=== PATIENT | female | born 1995 | race Caucasian/White ===

== ENCOUNTER 2019-07-10 14:02 | Emergency (ER) | payer BC ==
[2019-07-10] MEDS ORDERED: TETRACAINE 0.5% STERI-UNIT SOL OP STA (14:10)
[2019-07-10] MEDS ORDERED: Fluor-I-Strip/Ful-Flo OP ONE ×2 (14:11→14:13)
[2019-07-10 14:12] VITALS: BP 136/86; PULSE 96; O2SAT 100
[2019-07-10] MEDS ORDERED: Eye-Stream Solution OP ONE (14:12)
[2019-07-10] MEDS ORDERED: Eye-Stream Solution ONE (14:13)
[2019-07-10] MEDS ORDERED: TETRACAINE 0.5% STERI-UNIT SOL OP ONE (14:13)
--- NOTE | 2019-07-10 14:23 | ERPHSYRPT ---
- History of Present Illness Time Seen by Provider: 07/10/19 14:10 Source: patient Exam Limitations: no limitations Patient Subjective Stated Complaint: Pt's dog scratched her left eye and she is unable to open her eye without pain Triage Nursing Assessment: Pt brought to the ER by her , unable to open left eye due to pain and tearing, rates pain 6/10, denies any other issues at this time Physician History: Her dog scratched her left eye 3 hours prior to coming into the emergency department. It is difficult to keep both eyes open due to the pain of the left eye. Patient wears glasses and contact lenses. Timing/Duration: today, hour(s) (3), sudden Location: left eye Severity: severe Apparent Injury: yes Associated Symptoms: pain, sensitivity to light, foreign body sensation, blurred vision, No burning, No itching, No redness, No matting, No eyelid swelling, No decreased vision, No double vision Visual Assistive Devices: Glasses, Contacts Chemical Exposure: No Trauma: Yes (dog scratched her left eye) Welding Arc/Tanning Bed Exposure: No Allergies/Adverse Reactions: No Known Drug Allergies Allergy (Verified 07/10/19 14:12) Home Medications: Dextroamphetamine/Amphetamine [Dextroamp-Amphetamin 20 mg Tab] 0.5 tab PO TID [History] Norethindrone AC-Eth Estradiol [Microgestin] 1 each PO DAILY 07/10/19 [History] Sertraline HCl 100 mg PO DAILY 07/10/19 [History] - Review of Systems Constitutional: No Fever, No Chills Eyes: Eye Pain, Photophobia, Tearing, Vision Changes, Foreign Body Sensation Ears, Nose, & Throat: No Ear Pain, No Nose Pain, No Epistaxis, No Mouth Swelling , No Throat Pain, No Painful Swallowing Respiratory: No Cough, No Dyspnea Cardiac: No Chest Pain, No Palpitations, No Syncope Abdominal/Gastrointestinal: No Abdominal Pain, No Nausea, No Vomiting Genitourinary Symptoms: No Flank Pain Musculoskeletal: No Back Pain, No Neck Pain Skin: No Pruritis, No Rash Neurological: No Dizziness, No Headache, No Irritability, No Lethargy, No Sensory Changes, No Speech Changes Psychological: No Anxiety Endocrine: No Excessive Sweating Hematologic/Lymphatic: No Easy Bleeding, No Easy Bruising All Other Systems: Reviewed and Negative - Past Medical History Pertinent Past Medical History: No - Past Surgical History Past Surgical History: Yes Gastrointestinal: Cholecystectomy - Social History Smoking Status: Former smoker Exposure to second hand smoke: No Drug Use: none Patient Lives Alone: No - Female History Hx Last Menstrual Period: 06/25/2019 Hx Now: No - Nursing Vital Signs Nursing Vital Signs: Initial Vital Signs Temperature 98.3 F 07/10/19 14:06 Pulse Rate 96 H 07/10/19 14:06 Blood Pressure 136/86 07/10/19 14:06 O2 Sat by Pulse Oximetry 100 07/10/19 14:06 Pain Scale Pain Intensity 6 - Physical Exam General Appearance: no apparent distress, alert Vision Acuity Degree Evaluation Phase: Uncorrected Vision Acuity Right Eye: 20/70 Vision Acuity Left Eye: 20/70 Eye Exam: left eye: corneal abrasion (negative foreign bodies, negative hyphema , negative Sidel's signs, negative ocular penetration; positive uptake of fluorscein from 6-8 o'clock in the shape of a semi-lunar), bilateral eye: normal inspection, PERRL, EOMI Ears, Nose, Throat Exam: normal ENT inspection, TMs normal, pharynx normal, moist mucous membranes Neck Exam: normal inspection, non-tender, supple, full range of motion, No meningismus, No mass, No Brudzinski Respiratory Exam: normal breath sounds, lungs clear, airway intact, No chest tenderness, No respiratory distress Cardiovascular Exam: regular rate/rhythm, normal heart sounds, normal peripheral pulses, capillary refill <2 sec Neurologic: alert, oriented x 3, cooperative, roll changer II-XII nml as tested, normal mood/affect, sensation nml, No motor deficits Skin Exam: normal color, warm, dry, No rash, No petechiae, No cyanosis SpO2 Interpretation: normal SpO2: 100 O2 Delivery: Room Air Ordered Tests: Active Orders 24 hr Category Date Time Status Visual Acuity STAT Care 07/10/19 14:07 Active Medication Summary Discontinued Medications Generic Name Dose Route Start Last Admin Trade Name Freq PRN Reason Stop Dose Admin Eye Irrigation Solution 15 ml 07/10/19 14:12 07/10/19 14:14 Eye-Stream Solution OP 07/10/19 14:13 15 ml STAT ONE Administration Eye Irrigation Solution Confirm 07/10/19 14:13 Eye-Stream Solution Administered 07/10/19 14:14 Dose 30 ml .ROUTE .STK-MED ONE Fluorescein Sodium 1 mg 07/10/19 14:11 07/10/19 14:15 Scdqk-O-Ohxot/Ful-Cecilio OP 07/10/19 14:12 1 mg STAT ONE Administration Fluorescein Sodium Confirm 07/10/19 14:13 Lwmvx-K-Riltm/Ful-Cecilio Administered 07/10/19 14:14 Dose 1 mg OP .STK-MED ONE Tetracaine HCl 4 ml 07/10/19 14:10 07/10/19 14:14 Tetracaine 0.5% Steri-Unit Angelica OP 07/10/19 14:11 4 ml STAT STA Administration Tetracaine HCl Confirm 07/10/19 14:13 Tetracaine 0.5% Steri-Unit Angelica Administered 07/10/19 14:14 Dose 4 ml OP .STK-MED ONE - Progress Progress: improved Progress Note: 07/10/19 14:33 Patient's pain resolved after placement of tetracaine eye drops to the left eye. Examination performed after pain resolved. Counseled pt/family regarding: diagnosis, need for follow-up, rad results - Departure Departure Disposition: Home Clinical Impression: Elevated blood pressure reading without diagnosis of hypertension Left corneal abrasion Qualifiers: Encounter type: initial encounter Qualified Code(s): S05.02XA - Injury of conjunctiva and corneal abrasion without foreign body, left eye, initial encounter Condition: Good Critical Care Time: No Referrals: ROSSY MENDOZA, OD [NON-STAFF PHY W/O PRIVILEGES] - 07/10/19 (Eye-Specialist for your reference) Instructions: DASH Diet, Corneal Abrasion (DC) Additional Instructions: Followup with your hydraulic specialist in [place], [place] on 07/11/2019 or your hydraulic specialist referral given to you in [facility] on 07/10/2019. Call today for an appointment for followup of your left corneal abrasion. Use the eye wetting drips every 3 hours while awake for the next 5 days. Discharge/Care Plan NIURKA SANDOVAL was seen on 07/10/19 in the Emergency Room. The patient was counseled regarding Diagnosis,Lab results, Imaging studies, need for follow up and when to return to the Emergency Room. Prescriptions given: Discharge Note I have spoken with the patient. I have explained the patient's condition, diagnosis and treatment plan based on the information available to me at this time. I have answered the patient's and/or caregiver's questions and addressed any concerns. The patient and/or caregivers have as good understanding of the patient's diagnosis, condition and treatment plan as can be expected at this point. The vital signs have been stable. The patient's condition is stable and appropriate for discharge from the emergency department. The patient will pursue further outpatient evaluation with the primary care physician or other designated or consulting physician as outlined in the discharge instructions. The patient and/or caregivers are agreeable to this plan of care and follow-up instructions have been explained in detail. The patient and/or caregivers have received these instruction. The patient/and or caregivers are aware that any significant change in condition or worsening of symptoms should prompt an immediate return to this or the closest emergency department or call 911. Forms: Work/School Release Form Prescriptions: Tobramycin Sulfate Ophth [Tobrex EYE DROPS 5 ML] 2 drops OP Q4H PRN 5 Days #1 bottle Hydrocodone/APAP 5-325 Tab^^^ [[place] 5-325 Tablet^^^] 1 tab PO Q6HPRN PRN #8 tablet MDD 6 PRN Reason: Pain Etodolac 400 mg [Lodine 400 mg] 400 mg PO BID PRN PRN #20 tablet PRN Reason: Pain
== END 2019-07-10 14:49 | disposition home or self-care (01) ==
LOC: ED 14:02
DX: S05.02XA Injury of conjunctiva and corneal abrasion without foreign body, left eye, initial encounter (principal); R03.0 Elevated blood-pressure reading, without diagnosis of hypertension; W54.1XXA Struck by dog, initial encounter
CPT/HCPCS: 99283; A9270-GY